=== PATIENT | male | born 1995 | race Caucasian/White ===

== ENCOUNTER 2020-05-08 08:27 | Emergency (ER) | payer BC ==
[2020-05-08] MEDS ORDERED: Famotidine 20 MG/2 ML SDV IVPUSH ONE (08:51)
[2020-05-08] MEDS ORDERED: cefTRIAXone 1 GM in Sodium Chloride 0.9% 100 ML IV ONE (08:51)
[2020-05-08] MEDS ORDERED: Lactated Ringers 1,000 ML IV ONE (08:51)
[2020-05-08] MEDS ORDERED: Pantoprazole 40 MG Vial IVPUSH ONE (08:51)
[2020-05-08] MEDS ORDERED: Ondansetron 4 MG/2 ML SDV IVPUSH ONE (08:51)
[2020-05-08] MEDS ORDERED: metroNIDAZOLE/Normal Saline 500 MG in Premix Bag 1 BAG IV ONE (08:51)
--- NOTE | 2020-05-08 08:51 | EDM.PDOC ---
ED HPI GENERAL MEDICAL PROBLEM - General Chief Complaint: Abdominal Pain Stated Complaint: Abdominal Pain Time Seen by Provider: 05/08/20 08:45 Source of Information: Reports: Patient, Old Records ([facility] chart/[facility]), Significant Other History Limitations: Reports: No Limitations - History of Present Illness INITIAL COMMENTS - FREE TEXT/NARRATIVE: The patient was brought to the emergency room via private automobile by his mother and significant other for evaluation of 6/10 diffuse abdominal pain initially starting in the right lower quadrant. Symptoms started at about 3 AM this past evening with 3 episodes of emesis since that time, including last episode at 8 AM. The patient did take a Dulcolax suppository and some MiraLAX at about 7 AM this morning with no improvement of his symptoms. Patient did have a normal bowel movement yesterday. He denies any known exposure to infection, food poisoning, etc. He has not had GI problems in the past. No recent history of heartburn, hematemesis, diarrhea, melena, gross hematochezia, or any food intolerance, including fatty foods, etc.. He denies any gross hematuria, colic, or other UTI symptoms. The patient also denies any recent fever, cough, wheezing, dyspnea, etc.. The patient denies any chest pain/pressure, heart flutter, dizziness, orthostasis, orthopnea, diaphoresis, paresthesias, recent decreased exercise tolerance, or any other anginal-type symptoms. Onset: Today, Gradual Onset Date: 05/08/20 Onset Time: 03:00 Duration: Constant, Getting Worse Location: Reports: Abdomen. Denies: Head, Face, Neck, Chest, Back, Pelvis, Upper Extremity, Left, Upper Extremity, Right, Radiates to Quality: Reports: Stabbing Severity: Moderate Improves with: Reports: None Worsens with: Reports: None Context: Reports: Other (As above). Denies: Sick Contact, Trauma Associated Symptoms: Reports: Loss of Appetite (Mild patient did not have breakfast this morning.), Nausea/Vomiting. 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 Denies: Allergic Rhinitis, Cataract, Glaucoma, Hard of Hearing, Impaired Vision, Macular Degeneration, Otitis Media, Retinal Detachment, Sinusitis Cardiovascular History: Reports: None, Other (See Below). Denies: Afib, Aneurysm, Arrhythmia, Blood Clots/VTE/DVT, CAD, Heart Murmur, High Cholesterol, Hypertension, OH, Syncope Other Cardiovascular History: The patient does not know his cholesterol status. Respiratory History: Denies: Asthma, Bronchitis, Recurrent, COPD, Intubation, Difficult, Intubation, Previous, PE, Pneumonia, Recurrent, Pneumothorax, Sleep Apnea, TB Gastrointestinal History: Reports: None. Denies: Celiac Disease, Cholelithiasis, Chronic Constipation, Chronic Diarrhea, Colon Polyp, Fecal Incontinence, Gastritis, GERD, GI Bleed, Hepatitis, Hiatal Hernia, Inflammatory Bowel Disease, Jaundice, Pancreatitis, PUD Genitourinary History: Denies: Acute Renal Failure, Chronic Renal Insuffiency, Renal Calculus, STD, Urinary Incontinence, UTI, Recurrent Musculoskeletal History: Reports: Fracture, Other (See Below). Denies: Arthritis, Back Pain, Chronic, Gout, Neck Pain, Chronic, Osteoarthritis, RA, SLE Other Musculoskeletal History: Right wrist fracture on 12/06/2012. Additional previous midshaft proximal radial ulnar fracture 2 times at about age 9, including on 07/11/2004. Previous right sided right scapular fracture at age 12. Neurological History: Reports: None, Headaches, Chronic. Denies: Cerebral Aneurysms, Concussion, Head Trauma, Migraines, Seizure, TIA Psychiatric History: Reports: Anxiety, Depression. Denies: Abuse, Victim of, ADD, ADHD, Addiction, Psych Hospitalization(s), PTSD, Suicide Attempt, Suicidal Ideation Endocrine/Metabolic History: Denies: Diabetes, Type I, Diabetes, Type II, Diabetes Mellitus, Type 3c, Hypokalemia, Hypothyroidism, IDDM, Obesity/BMI 30+ Hematologic History: Reports: None. Denies: Anemia, Blood Transfusion(s), Iron Deficiency Immunologic History: Reports: None. Denies: AIDS, HIV, SLE Oncologic (Cancer) History: Reports: None. Denies: Basal Cell Carcinoma, Hodgkin's Lymphoma, Leukemia, Lymphoma, Malignant Melanoma, Non-Hodgkin's Lymphoma, Squamous Cell Carcinoma Dermatologic History: Reports: None. Denies: Eczema, Psoriasis - Infectious Disease History Infectious Disease History: Reports: None. Denies: C-Difficile, Chicken Pox, Measles, Meningitis, Mononucleosis, MRSA, Mumps, Novel Coronavirus, Pertussis (Whooping Cough), Rubella, Scarlet Fever, Shingles, TB, VRE - Past Surgical History Head Surgeries/Procedures: Reports: None HEENT Surgical History: Reports: None. Denies: Adenoidectomy, Cataract Surgery, Eye Surgery, LASIK, Myringotomy w Tube(s), Naso-Sinus Surgery, Oral Surgery, Tonsillectomy Cardiovascular Surgical History: Reports: None. Denies: Vascular Surgery Respiratory Surgical History: Reports: None. Denies: Thoracentesis GI Surgical History: Reports: None. Denies: Appendectomy, Cholecystectomy, Colonoscopy, EGD, Hernia, Abdominal, Hernia, Inguinal, Hernia Repair/Other Male Surgical History: Reports: Circumcision, Other (See Below). Denies: Vasectomy Other Male Surgeries/Procedures: Initial circumcision as an with repeat procedure at 18 months of age. Endocrine Surgical History: Reports: None Neurological Surgical History: Reports: None. Denies: C-Spine, Discectomy, Laminectomy, Lumbar Spine, Sacral Spine, Spinal Fusion, Thoracic Spine, Vertebroplasty Musculoskeletal Surgical History: Reports: None. Denies: Arthroscopic Procedure, Carpal Tunnel, Ganglion Cyst, Joint Replacement, ORIF, Shoulder Surgery Oncologic Surgical History: Reports: None Dermatological Surgical History: Reports: None Social & Family History - Family History HEENT: Reports: Cataract, Other (See Below). Denies: Glaucoma, Macular Degeneration, Retinal Detachment Other HEENT Family History: Paternal grandmother with glaucoma. Paternal grandparents with cataracts. Cardiac: Reports: Aneurysm, CAD, OH, Other (See Below). Denies: Afib, Arrhythmia, Blood Clots/VTE/DVT, Heart Failure, Heart Murmur, High Cholesterol, Hypertension, Pacemaker ( narrowing of the), PVD/COD (Vascular problems with the head), Syncope Other Cardiac Family History: Father with thoracic aortic aneurysm currently in observation. Maternal grandfather with OH at age 70 with CABG x3. Paternal great grandparents with fatal MIs in their 60s and 80s. Maternal great grandfather with fatal OH at age 54. Respiratory: Reports: COPD, Other (See Below). Denies: Asthma, PE, Sleep Apnea Other Respiratory Family Hisory: Paternal grandmother with COPD and secondary spontaneous pneumothorax with history of tobacco use. GI: Denies: Celiac Disease, Cholelithiasis, Colon Polyps, GERD, GI bleed, Hepatitis, Inflammatory Bowel Disease, Irritable Bowel Syndrome, PUD : Reports: None. Denies: Renal Calculus, Renal Disease/Insufficiency OBGYN: Reports: None. Denies: Endometriosis, Recurrent Spontaneous Musculoskeletal: Reports: None. Denies: Arthritis, Gout, Osteoarthritis, RA, SLE Neurological: Reports: None. Denies: Alzheimers Disease, Cerebral Aneurysms, Dementia, Migraines, MS, Parkinson's, Seizure, TIA Psychiatric: Reports: Anxiety, Depression, Other (See Below). Denies: Abuse, Victim of, ADD, ADHD, Psych Hospitalization(s), PTSD, Suicide Attempt Other Psychiatric Family History: Paternal grandmother with anxiety depression disorder. Endocrine/Metabolic: Reports: Diabetes, type II, Hypothyroidism, IDDM, Other (See Below). Denies: Diabetes, Gestational, Diabetes, Type I, Diabetes Mellitus, Type 3c Other Endocrine/Metabolic Family History: Maternal uncle with IDDM. Maternal grandfather with AODM. Paternal aunt with hypothyroidism secondary to surgery from thyroid cancer. Hematologic: Reports: None. Denies: Anemia, SLE Immunologic: Reports: None. Denies: AIDS, HIV, SLE Dermatologic: Reports: None. Denies: Eczema, Psoriasis Oncologic: Reports: Lung, Metastatic, Prostate, Renal, Thyroid, Other (See Below) (Paternal aunt with thyroid cancer in her 60s. Mother with renal cancer at age 48. Maternal grandmother with metastatic lung cancer fatal at age 49. Paternal grandfather with prostate cancer in his 70s. Maternal grandfather with prostate cancer at age 70.). Denies: Colon, Hodgkin's Lymphoma, Leukemia, Lymphoma, Skin - Tobacco Use Tobacco Use Status *Q: Current Every Day Tobacco User Tobacco Use Within Last Twelve Months: Cigarettes Years of Tobacco use: 7 Packs/Tins Daily: 0.1 Packs/Tins Daily Comment: Started using tobacco products at age 18 with maximum previous cigarette use of 1 pack/day and current use of about 2-3 cigarettes/day. He also chews tobacco at about 1 can/week currently. Used Tobacco, but Quit: No Smoking Cessation Information Provided To Patient: Yes Second Hand Smoke Exposure: No Second Hand Smoke Education Provided: No - Caffeine Use Caffeine Use: Reports: Energy Drinks (2 cans/week), Soda (3 sodas per day). Denies: Coffee, Tea - Alcohol Use Alcohol Use History: Yes Days Per Week of Alcohol Use: 3 Number of Drinks Per Day: 4 Number of Drinks Per Day Comment: Usually mixed drinks. No previous DWIs, problems with alcohol abuse, etc. 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 ED EXAM, GI/ABD - Physical Exam Exam: See Below Exam Limited By: No Limitations General Appearance: Alert, WD/WN, No Apparent Distress Eyes: Bilateral: Normal Appearance (No Nystagmus), EOMI (PERRLA) Ears: Normal External Exam, Normal Canal, Hearing Grossly Normal, Normal TMs Nose: Normal Inspection, Normal Mucosa, No Blood Throat/Mouth: Normal Inspection, Normal Lips, Normal Teeth, Normal Gums, Normal Oropharynx, Normal Voice, No Airway Compromise Head: Atraumatic, Normocephalic Neck: Normal Inspection, Supple, Non-Tender, Full Range of Motion Respiratory/Chest: No Respiratory Distress, Lungs Clear, Normal Breath Sounds, No Accessory Muscle Use, Chest Non-Tender GI/Abdominal Exam: Normal Bowel Sounds, Soft, No Organomegaly, No Distention, No Abnormal Bruit, No Mass, Pelvis Stable, Other (moderate RLQ palpation pain without rebound or other peritoneal signs) (Male) Exam: Deferred Rectal (Males) Exam: Deferred Extremities: Normal Inspection, Normal Range of Motion, Non-Tender, Normal Capillary Refill, No Pedal Edema Neurological: Alert, Oriented, CN II-XII Intact, Normal Cognition, Normal Gait, Normal Reflexes, No Motor/Sensory Deficits Psychiatric: Normal Affect, Normal Mood Skin Exam: Warm, Dry, Intact, Normal Color, No Rash Lymphatic: No Adenopathy Course - Vital Signs Last Recorded V/S: Last Vital Signs Temp 36.2 C 05/08/20 08:30 Pulse 69 05/08/20 10:50 Resp 18 05/08/20 10:50 BP 148/81 H 05/08/20 10:50 Pulse Ox 100 05/08/20 10:50 Vital Signs - 24 hr 05/08/20 05/08/20 08:30 10:50 Temperature [ 36.2 C Temporal] Pulse, 64 69 Peripheral [ Pulse Oximetry] Respiratory 16 18 Rate Blood Pressure 145/90 H 148/81 H [Right Upper Arm] O2 Sat by Pulse 99 100 Oximetry - Orders/Labs/Meds Orders: Active Orders 24 hr Category Date Time Status Abdomen Pelvis w Cont [CT] Stat Exams 05/08/20 08:51 Taken Obtain Past Medical Record [OM.PC] Urgent Oth 05/08/20 08:51 Active Peripheral IV Insertion Adult [OM.PC] Stat Oth 05/08/20 08:51 Ordered Resuscitation Status Stat Resus Stat 05/08/20 08:51 Ordered Labs: Laboratory Tests 05/08/20 05/08/20 05/08/20 Range/Units 09:00 09:00 09:00 WBC 20.1 H (4.0-10.2) K/uL RBC 4.95 (4.33-5.41) M/uL Hgb 15.6 (13.1-16.8) g/dL Hct 45.4 (39.0-49.0) % MCV 91.7 (84.0-98.0) fL MCH 31.5 (28.2-33.3) pg MCHC 34.4 (31.7-36.0) g/dL RDW 12.0 (11.2-14.1) % Plt Count 201 (150-350) K/uL Neut % (Auto) 89.9 H (45.0-80.0) % Lymph % (Auto) 2.7 L (10.0-50.0) % Stanton % (Auto) 7.4 (2.0-14.0) % Eos % (Auto) 0.0 (0.0-5.0) % Baso % (Auto) 0.0 (0.0-2.0) % Neut # (Auto) 18.02 H (1.40-7.00) K/uL Lymph # (Auto) 0.55 (0.50-3.50) K/uL Stanton # (Auto) 1.48 H (0.00-1.00) K/uL Eos # (Auto) 0.00 (0.00-0.50) K/uL Baso # (Auto) 0.01 (0.00-0.20) K/uL PT 10.0 (9.5-12.0) SEC INR 1.0 APTT 26.2 (24.5-32.8) SEC Sodium (136-145) mmol/L Potassium (3.5-5.1) mmol/L Chloride (98-107) mmol/L Carbon Dioxide (21.0-32.0) mmol/L BUN (7-18) mg/dL Creatinine (0.51-1.17) mg/dL Est Cr Clr Drug Dosing mL/min Estimated GFR (MDRD) mL/min Glucose (74-106) mg/dL Lactic Acid (0.4-2.0) mmol/L Uric Acid (2.6-7.2) mg/dL Calcium (8.5-10.1) mg/dL Magnesium (1.8-2.4) mg/dL Total Bilirubin (0.2-1.0) mg/dL AST (15-37) U/L ALT (12-78) U/L Alkaline Phosphatase (46-116) IU/L Total Protein (6.4-8.2) g/dL Albumin (3.4-5.0) g/dL Amylase 39 (25-115) U/L Lipase (73-393) U/L 05/08/20 05/08/20 Range/Units 09:00 09:00 WBC (4.0-10.2) K/uL RBC (4.33-5.41) M/uL Hgb (13.1-16.8) g/dL Hct (39.0-49.0) % MCV (84.0-98.0) fL MCH (28.2-33.3) pg MCHC (31.7-36.0) g/dL RDW (11.2-14.1) % Plt Count (150-350) K/uL Neut % (Auto) (45.0-80.0) % Lymph % (Auto) (10.0-50.0) % Stanton % (Auto) (2.0-14.0) % Eos % (Auto) (0.0-5.0) % Baso % (Auto) (0.0-2.0) % Neut # (Auto) (1.40-7.00) K/uL Lymph # (Auto) (0.50-3.50) K/uL Stanton # (Auto) (0.00-1.00) K/uL Eos # (Auto) (0.00-0.50) K/uL Baso # (Auto) (0.00-0.20) K/uL PT (9.5-12.0) SEC INR APTT (24.5-32.8) SEC Sodium 137 (136-145) mmol/L Potassium 3.9 (3.5-5.1) mmol/L Chloride 101 (98-107) mmol/L Carbon Dioxide 26.8 (21.0-32.0) mmol/L BUN 19 H (7-18) mg/dL Creatinine 0.85 (0.51-1.17) mg/dL Est Cr Clr Drug Dosing 117.57 mL/min Estimated GFR (MDRD) > 60 mL/min Glucose 132 H (74-106) mg/dL Lactic Acid 1.3 (0.4-2.0) mmol/L Uric Acid 3.8 (2.6-7.2) mg/dL Calcium 8.9 (8.5-10.1) mg/dL Magnesium 1.8 (1.8-2.4) mg/dL Total Bilirubin 0.8 (0.2-1.0) mg/dL AST 24 (15-37) U/L ALT 34 (12-78) U/L Alkaline Phosphatase 96 (46-116) IU/L Total Protein 8.0 (6.4-8.2) g/dL Albumin 4.5 (3.4-5.0) g/dL Amylase (25-115) U/L Lipase 39 L (73-393) U/L Meds: Medications Discontinued Medications Generic Name Dose Route Start Last Admin Trade Name Freq PRN Reason Stop Dose Admin Famotidine 40 mg 05/08/20 08:51 05/08/20 09:09 Pepcid IVPUSH 05/08/20 08:52 40 mg ONETIME ONE Administration Lactated Ringer's 1,000 mls @ 999 mls/hr 05/08/20 08:51 Ringers, Lactated IV 05/08/20 09:51 .BOLUS ONE Ceftriaxone Sodium 1 gm/ 100 mls @ 200 mls/hr 05/08/20 08:51 05/08/20 09:18 Sodium Chloride IV 05/08/20 09:20 200 mls/hr ONETIME ONE Administration Metronidazole 500 mg/ Premix 100 mls @ 100 mls/hr 05/08/20 08:51 05/08/20 09:58 IV 05/08/20 09:50 100 mls/hr ONETIME ONE Administration Iopamidol 100 ml 05/08/20 08:56 Isovue-300 (61%) IVPUSH 05/08/20 08:57 ONETIME ONE Iopamidol Confirm 05/08/20 08:58 Isovue-300 (61%) Administered 05/08/20 08:59 Dose 100 ml .ROUTE .STK-MED ONE Ondansetron HCl 4 mg 05/08/20 08:51 05/08/20 09:05 Zofran IVPUSH 05/08/20 08:52 4 mg ONETIME ONE Administration Pantoprazole Sodium 40 mg 05/08/20 08:51 05/08/20 09:12 Protonix Iv IVPUSH 05/08/20 08:52 40 mg ONETIME ONE Administration Sodium Chloride 10 ml 05/08/20 08:51 05/08/20 10:00 Saline Flush FLUSH 10 ml ASDIRECTED PRN Administration Keep Vein Open - Radiology Interpretation Free Text/Narrative:: Telephone consultation at 10:22 AM with the radiology department at [facility]. Preliminary verbal report of CT scan of the abdomen and pelvis with both oral and IV contrast was positive for beginning acute appendicitis. Official x-ray report was received prior to transfer of the patient. CT Results Date: 05/08/20 CT Results Time: 10:22 Departure - Departure Time of Disposition: 11:00 Disposition: DC/Tfer to [facility] 02 Condition: Good Clinical Impression: Tobacco abuse counseling Abdominal pain Qualifiers: Abdominal location: right lower quadrant Qualified Code(s): R10.31 - Right lower quadrant pain Appendicitis Qualifiers: Appendicitis type: acute appendicitis Acute appendicitis type: other Qualified Code(s): K35.890 - Other acute appendicitis without perforation or gangrene - Discharge Information *PRESCRIPTION DRUG MONITORING PROGRAM REVIEWED*: Not Applicable *COPY OF PRESCRIPTION DRUG MONITORING REPORT IN PATIENT KAMALA: Not Applicable Instructions: Steps to Quit Smoking, [id number], Health Risks of Smoking, Appendicitis, Adult, [id number] Referrals: PCP,None [Primary Care Provider] - Forms: ED Department Discharge, Interfacility Transfer EMTALA Additional Instructions: 1. Patient should be driven to [facility] for direct admission and probable appendectomy with strict nothing to eat or drink until otherwise directed by accepting providers. 2. Stop all tobacco use [facility] as directed/per provided information and consider contacting Quit LIne, etc.. 3. Immediately after this visit verify that your cellular telephone's voicemail has been activated and is empty. Also verify that your home telephone's answering machine is operating properly and has space to receive messages. Note that it is sometimes necessary for us to be able to contact you at a later date to discuss your medical care. 4. Please remember that we are ALWAYS here for you and want to answer any questions you may have. Feel free to call the hospital any time and we call you back [facility]. Sepsis Event Note (ED) - Evaluation Sepsis Screening Result: No Definite Risk - Focused Exam Vital Signs: Vital Signs Temp Pulse Resp BP Pulse Ox 05/08/20 10:50 69 18 148/81 H 100 05/08/20 08:30 36.2 C 64 16 145/90 H 99 - Problem List & Annotations (1) Appendicitis SNOMED Code(s): 29678027 Code(s): K37 - UNSPECIFIED APPENDICITIS Status: Acute Priority: High Onset Date: 05/08/20 Annotation/Comment:: Positive CT scan of the abdomen pelvis for appendicitis as above. Telephone consultation with [facility] at 10:24 AM with subsequent acceptance of the patient for direct admission and surgery at 10:[address] Gu. Note initial strong suspicion of acute append icitis with IV Rocephin, IV Flagyl, and 1 L of lactated Ringer's IV bolus initiated shortly after patient's arrival to our facility and completed prior to patient's discharge/transfer.. Last oral intake was some cereal at 9 PM yesterday. Various therapeutic options were discussed with the patient and his family with patient to be transferred to [facility] via private automobile. Saline lock was left in place. Qualifiers: Appendicitis type: acute appendicitis Acute appendicitis type: other Qualified Code(s): K35.890 - Other acute appendicitis without perforation or gangrene; K35.89 - Other acute appendicitis (2) Abdominal pain SNOMED Code(s): 23893044 Code(s): R10.9 - UNSPECIFIED ABDOMINAL PAIN Status: Acute Priority: High Onset Date: 05/08/20 Annotation/Comment:: As above Qualifiers: Abdominal location: right lower quadrant Qualified Code(s): R10.31 - Right lower quadrant pain (3) Tobacco abuse counseling SNOMED Code(s): 595882818, 218988154, 749457675 Code(s): Z71.6 - TOBACCO ABUSE COUNSELING Status: Chronic Priority: Medium Annotation/Comment:: Note concurrent cigarette and chewing tobacco use. The patient was counseled on the use of Nicorette gum with tobacco cessation strongly encouraged and information provided at time of discharge. - Problem List Review Problem List Initiated/Reviewed/Updated: Yes - My Orders Last 24 Hours: My Active Orders 05/08/20 08:51 Abdomen Pelvis w Cont [CT] Stat Obtain Past Medical Record [OM.PC] Urgent Peripheral IV Insertion Adult [OM.PC] Stat Resuscitation Status Stat - Assessment/Plan Last 24 Hours: My Active Orders 05/08/20 08:51 Abdomen Pelvis w Cont [CT] Stat Obtain Past Medical Record [OM.PC] Urgent Peripheral IV Insertion Adult [OM.PC] Stat Resuscitation Status Stat Assessment:: As above Plan: As above. Extensive precautions were given to the patient, his mother, and his significant other, who are in agreement with the treatment plan. See Patient In structions for further treatment and plan.
[2020-05-08] MEDS ORDERED: Iopamidol 612 MG/ML 100 ML Bottle IVPUSH ONE (08:56)
[2020-05-08] MEDS ORDERED: Iopamidol 612 MG/ML 100 ML Bottle ONE (08:58)
[2020-05-08] MEDS: Sodium Chloride 0.9% 10 ML Syringe FLUSH PRN ×3 (09:06→10:00)
[2020-05-08 09:23] LABS: PTT,PARTIAL THROMBOPLSTIN TIME 26.2 SEC (24.5-32.8)
[2020-05-08 09:24] LABS: CHLORIDE,CL 101 mmol/L (98-107); SODIUM,NA 137 mmol/L (136-145)
== END 2020-05-08 11:00 ==
LOC: LL.ED 08:27
DX: K35.890 Other acute appendicitis without perforation or gangrene (principal); Z71.6 Tobacco abuse counseling; Z72.0 Tobacco use
CPT/HCPCS: 36415; 74177; 80053; 82150; 83605; 83690; 83735; 84550; 85025; 85610; 85730; 96365; 96367; 96375; 99285; C9113; J0696; J2405; J3490; Q9967; 99284